=== PATIENT | male | born 1995 | race Caucasian/White ===

== ENCOUNTER 2020-04-17 07:25 | Day surgery (SDC) | payer MEDICAID ==
[~2020-04-17] VITALS: Ht 165.1 cm; Wt 92.1 kg
[2020-04-17] MEDS ORDERED: normal saline 1000ml 1,000 ML IV SCH (07:45)
[2020-04-17] MEDS ORDERED: ceFAZolin 2gm in dextrose, iso 50 ML IV ONE (07:45)
[2020-04-17] MEDS ORDERED: [UNRECOGNIZED DRUG - CODE] PO (08:08)
[2020-04-17] MEDS ORDERED: LEVO50TA8 PO (08:09)
[2020-04-17 08:13] VITALS: BP 111/66
[2020-04-17] MEDS ORDERED: fentaNYL/PF 50MCG/1 ML 2ML syringe ONE (14:29)
[2020-04-17] MEDS ORDERED: midazolam 2 mg/2 ml injection ONE ×2 (14:29→14:52)
[2020-04-17] MEDS ORDERED: ceFAZolin 1000mg inj ONE (14:30)
[2020-04-17] MEDS ORDERED: LIDOcaine 1% W/epiNEPHrine 1:100,000 20ml vial ONE (14:30)
[2020-04-17 15:35] VITALS: BP 114/65
[2020-04-17 15:50] VITALS: BP 116/63
[2020-04-17 16:05] VITALS: BP 110/60
[2020-04-17 16:20] VITALS: BP 109/59
[2020-04-17 16:35] VITALS: BP 122/63
== END 2020-04-17 17:00 | disposition home or self-care (01) ==
LOC: SSTAY O 07:25
PROVIDERS: ATTEND Internal Medicine Interventional Cardiology
DX: Z45.02 Encounter for adjustment and management of automatic implantable cardiac defibrillator (principal); I27.20 Pulmonary hypertension, unspecified; G47.33 Obstructive sleep apnea (adult) (pediatric); Z79.899 Other long term (current) drug therapy
CPT/HCPCS: 33262; 93005; 99152; 99153; C1722; J0690; J2250; J3010; A4620